=== PATIENT | female | born 1960 | race Caucasian/White ===

== ENCOUNTER 2020-06-01 08:26 | Day surgery (SDC) | payer BC ==
[2020-06-01 08:40] VITALS: RESP 16; TEMP 98.2
[2020-06-01 10:40] VITALS: BP 135/87; PULSE 61
--- NOTE | 2020-06-01 15:28 | US ---
EXAMINATION TYPE: US biopsy soft tissue/muscle DATE OF EXAM: 06/01/2020 COMPARISON: NONE HISTORY: Abnormal ultrasound of right mandible. Right submandibular palpable mass. OPERATORS: Dr. Leslee Ramirez. TECHNIQUE: Preliminary imaging of the right submandibular region demonstrated a 1.9 x 2.1 x 1.5 cm well-circumsc ribed, hypoechoic, lobulated mass with internal vascularity. This mass is palpable, firm, mobile, and not tender to palpation on physical exam. Informed consent was obtained after discussing the risks, benefits, and alternatives with the patient . Maximal barrier technique was utilized. Ultrasound using sterile technique. The skin overlying the right submandibular mass was localized with ultrasound and the overlying skin prepped and draped. Lid ocaine used for local anesthesia. A small skin jeannine was made with a scalpel. Utilizing ultrasound ben dance a 5 cm 17-gauge introducer needle was placed into the mass. A 10 cm 18-gauge coaxial core biops y needle was placed and 3 core biopsy specimens were obtained with 1 cm throw. All needles were remov ed. Postbiopsy imaging demonstrates no evidence of hemorrhage. Following the procedure hemostasis achieved. The sterile Band-Aid was placed. No immediate complicati on IMPRESSION: Status post ultrasound-guided core biopsy of right submandibular mass.
== END 2020-06-01 10:45 | disposition home or self-care (01) ==
LOC: RADPROMAIN 08:26
PROVIDERS: ATTEND Family Medicine
DX: D11.7 Benign neoplasm of other major salivary glands (principal); R93.89 Abnormal findings on diagnostic imaging of other specified body structures
CPT/HCPCS: 20206; 76942; 88305; 88341; 88342